=== PATIENT | male | born 1980 | race African-American/Black ===

== ENCOUNTER 2022-02-15 16:36 | Outpatient (CLI) | payer OTHER, SELFPAY ==
--- NOTE | ~2022-02-15 | XR_ITS ---
EXAMINATION: XR knee LT 3V DATE: 02/15/2022 16:56 INDICATION: Chronic infrapatellar pain. TECHNIQUE: 3 views of left knee were obtained. COMPARISON: None. FINDINGS: Bone alignment is normal. No acute fracture. There is mild osteoarthritis of patellofemoral compartment characterized by tiny osteophytes. No knee joint effusion. There is an enthesophyte at i nferior pole of patella. There is soft tissue swelling in the area of patellar tendon. IMPRESSION: 1. Mild left knee osteoarthritis. 2. Soft tissue swelling in the area of the patellar tendon, which may be tendinopathy. Reviewed, dictated and finalized at location A. IMPRESSION: 1. Mild left knee osteoarthritis. 2. Soft tissue swelling in the area of the patellar tendon, which may be tendin opathy.
--- NOTE | ~2022-02-15 | XR_ITS ---
LUMBAR SPINE INDICATION: Low back pain. TECHNIQUE: 3 views lumbar spine COMPARISON: None FINDINGS: No fracture, subluxation or dislocation. No evidence for spondylolysis or spondylolisthesi s. Vertebral bodies and disk spaces are preserved. IMPRESSION: 1: No significant abnormality of the lumbar spine identified. Reviewed, dictated and finalized at location A.
== END 2022-02-15 16:37 | disposition home or self-care (01) ==
PROVIDERS: PCP Family Medicine; Visit Provider Family Medicine
DX: M54.9 Dorsalgia, unspecified (principal); M17.12 Unilateral primary osteoarthritis, left knee; M79.89 Other specified soft tissue disorders
CPT/HCPCS: 72100; 73562

== ENCOUNTER 2023-08-09 14:24 | Emergency (ER) | payer OTHER, SELFPAY ==
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
[2023-08-09 14:45] VITALS: BP 136/78; PULSE 92; RESP 18; TEMP 36.1; O2SAT 100
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
[2023-08-09] MEDS: ACETAMINOPHEN 325 MG TABLET 650 MG PO (16:49)
[2023-08-09] MEDS: IBUPROFEN 600 MG TABLET PO (16:49)
[2023-08-09 18:34] VITALS: BP 129/75; PULSE 81; RESP 18; O2SAT 97
== END 2023-08-09 18:37 | disposition home or self-care (01) ==
PROVIDERS: Emergency Provider Emergency Medicine
DX: S39.92XA Unspecified injury of lower back, initial encounter (principal); F17.290 Nicotine dependence, other tobacco product, uncomplicated; V64.5XXA Driver of heavy transport vehicle injured in collision with heavy transport vehicle or bus in traffic accident, initial encounter
CPT/HCPCS: 70450; 72100; 72125; 99284; A9270